=== PATIENT | male | born 1975 | race Caucasian/White ===

== ENCOUNTER 2019-01-26 11:54 | Emergency (ER) | payer OTHER, SELFPAY ==
[2019-01-26 12:14] VITALS: BP 143/85; PULSE 78; RESP 13; TEMP 35.8; O2SAT 96
--- NOTE | 2019-01-26 12:37 | DI.CT.S_ITS ---
PROCEDURE: CT HEAD/BRAIN WO CON INDICATIONS: Persistent headache TECHNIQUE: Noncontrast 4.5 mm thick angled axial sections acquired from the foramen magnum to the vertex, with coronal and sagittal reformats. For radiation dose reduction, the following was used: automated exposure control, adjustment of mA and/or kV according to patient size. COMPARISON: [facility], CT, CT HEAD/BRAIN WO CON, 01/24/2019, 21:58. FINDINGS: Image quality: Diagnostic CSF spaces: Basal cisterns are patent. No extra-axial fluid collections. Ventricles are normal in size and shape. Brain: No midline shift. No intracranial masses or hemorrhage. Red-white matter interface is normal. Skull and face: Calvarium and visualized facial bones are intact, without suspicious lesions. Sinuses: Visualized sinuses and mastoids are clear. IMPRESSION: Stable head CT. No acute intracranial hemorrhage. Please consider MRI with contrast for further evaluation, given the patient's persistent symptoms. Dictated by: Jesus Molina M.D. on 01/26/2019 at 11:59 Approved by: Jesus Molina M.D. on 01/26/2019 at 12:01
--- NOTE | 2019-01-26 12:40 | ED.HA ---
HPI - Headache General Chief Complaint: Headache Stated Complaint: Aneurysm in head follow up severe pain really bad Time Seen by Provider: 01/26/19 11:56 Source: patient and old records reviewed Mode of arrival: ambulatory Limitations: no limitations History of Present Illness HPI Narrative: Patient is a 43-year-old male who presents with ongoing headache now for the last 11 days. He says it started 11 days ago after intercourse eye was quite severe. 2 days ago he was finally seen evaluated at [facility]. He was given Reglan Toradol Benadryl which he says it did not seem to help he also had a negative head CT and a negative LP. He was instructed to come back to the emergency department if his headache work getting worse on concerned that there may be aneurysm. He has no numbness tingling or weakness. He has severe pain on the right side of his head he vomited once today quite forcefully and was sweaty and diaphoretic. Overall now states that he is sensitive to light but feeling a bit better.. Complaint: headache Onset (ago): day(s) (11) Onset description: sudden Related Data Previous Rx's Medication Instructions Recorded ondansetron 4 mg PO TID PRN #10 tab 01/26/19 Allergies Allergy/AdvReac Type Severity Reaction Status Date / Time No Known Drug Allergies Allergy Verified 01/26/19 13:46 Review of Systems Review of Systems Narrative: GENERAL: Denies chills, fatigue, malaise, fever, sweats, travel HEENT: Denies sinus pain, ear pain, sore throat, difficulty swallowing, neck pain RESPIRATORY: Denies dyspnea, cough, wheezing, hemoptysis, sputum. CARDIOVASCULAR: Denies chest pain, palpitations, orthopnea, edema GASTROINTESTINAL: Denies nausea, vomiting, abdominal pain, diarrhea, constipation, melena. : Denies dysuria, frequency, incontinence, hematuria, urinary retention, flank pain. MUSCULOSKELETAL: Denies weakness, joint pain, or bony pain SKIN: No rash, no erythema, no pruritus NEUROLOGIC: See HPI PSYCHIATRIC: No concerning psychosocial issues. 12 point review of systems is negative except for those stated above and HPI [facility] Medical History Patient denies significant medical history (Acute) Social History Smoking Status: Current every day smoker Social History Smoking Status: Current every day smoker Exam Initial Vital Signs Initial Vital Signs: Vital Signs Temperature 96.5 F L 01/26/19 12:14 Pulse Rate 78 01/26/19 12:14 Respiratory Rate 13 01/26/19 12:14 Blood Pressure 143/85 H 01/26/19 12:14 Pulse Oximetry 96 01/26/19 12:14 GENERAL: Well-appearing, well-nourished and in no acute distress. HEENT: Head atraumatic,EOMI, pupils reactive, face symmetric, moist mucous membranes, neck is supple no meningeal signs CARDIOVASCULAR: Regular rate and rhythm without murmurs, rubs or gallops. RESPIRATORY: Breath sounds equal bilaterally, no wheezes rales or rhonchi. ABDOMEN: Soft, nontender. Normoactive bowel sounds all 4 quadrants. No guarding or rebound. : No CVA tenderness EXTREMITIES: Normal range of motion, no clubbing or edema. Neurovascularly intact NEUROLOGICAL: Alert and oriented x4.Normal gait and speech. Cranial nerves II through XII grossly intact. [employer] strength equal bilaterally able to lift lower extremities equally SKIN: Multiple tattoos Course Orders Ordered: ED Orders 01/26/19 12:37 CT head/brain wo con Stat Discontinued Medications Diphenhydramine HCl (Benadryl) 25 mg IV NOW ONE Stop: 01/26/19 12:38 Last Admin: 01/26/19 13:27 Dose: 25 mg Documented by: LILIAM Sodium Chloride (Normal Saline 0.9%) 1,000 mls @ 1,000 mls/hr IV BOLUS ONE Stop: 01/26/19 13:36 Last Infusion: 01/26/19 14:43 Dose: 1,000 mls/hr Documented by: Admin: 01/26/19 13:25 Dose: 1,000 mls/hr Documented by: LILIAM Ketorolac Tromethamine (Toradol) 30 mg IV NOW ONE Stop: 01/26/19 12:38 Last Admin: 01/26/19 13:27 Dose: 30 mg Documented by: LILIAM Prochlorperazine (Compazine) 10 mg IV NOW ONE Stop: 01/26/19 12:38 Last Admin: 01/26/19 13:25 Dose: 10 mg Documented by: BTONER Vital Signs Vital signs: Vital Signs - 8 hr 01/26/19 12:14 01/26/19 13:25 Temperature 96.5 F L Pulse Rate 78 78 Respiratory Rate 13 Blood Pressure 143/85 H 143/85 H Pulse Oximetry 96 MDM - Headache Imaging Data CT scan - head: Radiologist's impression: PROCEDURE: CT HEAD/BRAIN WO CON INDICATIONS: Persistent headache TECHNIQUE: Noncontrast 4.5 mm thick angled axial sections acquired from the foramen magnum to the vertex, with coronal and sagittal reformats. For radiation dose reduction, the following was used: automated exposure control, adjustment of mA and/or kV according to patient size. COMPARISON: [facility], CT, CT HEAD/BRAIN WO CON, 01/24/2019, 21:58. FINDINGS: Image quality: Diagnostic CSF spaces: Basal cisterns are patent. No extra-axial fluid collections. Ventricles are normal in size and shape. Brain: No midline shift. No intracranial masses or hemorrhage. Red-white matter interface is normal. Skull and face: Calvarium and visualized facial bones are intact, without suspicious lesions. Sinuses: Visualized sinuses and mastoids are clear. IMPRESSION: Stable head CT. No acute intracranial hemorrhage. Please consider MRI with contrast for further evaluation, given the patient's persistent symptoms. Dictated by: Jesus Molina M.D. on 01/26/2019 at 11:59 MDM Narrative Medical decision making narrative: Patient headache has improved with migraine cocktail. He has no focal deficits. Headache has been ongoing for the last 11 days. He had a negative lumbar puncture 2 days ago he also had blood work at that time as well normal. At this time I recommend outpatient MRI follow-up with Neurology. At this time you be discharged home with Zofran. Discharge Plan Departure Patient Disposition: Home Clinical Impression: Headache Qualifiers: Headache type: unspecified Headache chronicity pattern: unspecified pattern Intractability: not intractable Qualified Code(s): R51 - Headache Discharge Date/Time: 01/26/19 14:47 Instructions: DI for Migraine Activity Restrictions/Additional Instructions: *You have been diagnosed with headache *What to do: At this time CT scan is negative. I recommend Neurology consultation and possible outpatient MRI if you continue to have headaches *Continue to take medications as directed Zofran 4 mg every 8 hours if needed for nausea or vomiting *Follow up with your primary care provider in 2-3 days *Return to ER if you should have worsening headache persistent vomiting weakness numbness or tingling or any new, worsening or concerning symptoms Prescriptions: New ondansetron 4 mg tablet,disintegrating 4 mg PO TID PRN (Reason: nausea and vomiting) Qty: 10 RF: 0 Referrals: Raad Hamilton MD [Non-Staff] -
[2019-01-26 13:25] VITALS: BP 143/85; PULSE 78
[2019-01-26] MEDS: PROCHLORPERAZINE 10 MG/2 ML VIAL IV (13:25)
[2019-01-26] MEDS: SODIUM CHLORIDE 0.9% 1,000 ML 1000 ML IV (13:25)
[2019-01-26] MEDS: KETOROLAC 60 MG/2 ML VIAL 30 MG IV (13:27)
[2019-01-26] MEDS: diphenhydrAMINE 50 MG/ML VIAL 25 MG IV (13:27)
== END 2019-01-26 14:47 | disposition home or self-care (01) ==
PROVIDERS: Emergency Provider Emergency Medicine
DX: R51 Headache (principal)
CPT/HCPCS: 36591; 70450; 96361; 96374; 96375; 99283; 99284; J0780; J1200; J1885

== ENCOUNTER → 2021-03-03 07:56 | Outpatient (CLI) | payer OTHER, SELFPAY ==
[2021-03-03 08:35] LABS: COVID19 -Nasal RAPID Negative (Negative)
== END ==
PROVIDERS: Visit Provider Nurse Practitioner
DX: Z20.822 Contact with and (suspected) exposure to COVID-19 (principal); J02.9 Acute pharyngitis, unspecified; R05.9 Cough, unspecified
CPT/HCPCS: 87635